=== PATIENT | male | born 1995 | race Two or more races ===

== ENCOUNTER 2021-03-08 11:25 | Emergency (ER) | payer BC ==
--- NOTE | 2021-03-08 11:43 | EDM.PDOC ---
ED HPI GENERAL MEDICAL PROBLEM - General Chief Complaint: Lower Extremity Injury/Pain Stated Complaint: RT KNEE PAIN Time Seen by Provider: 03/08/21 11:35 Source of Information: Reports: Patient, RN Notes Reviewed History Limitations: Reports: No Limitations - History of Present Illness INITIAL COMMENTS - FREE TEXT/NARRATIVE: Patient is a 25-year-old male who presents to the ER for the evaluation of his right knee pain. Notes that he moved the wrong way on Monday night, he felt a pop in his knee. He has had pain in his knee since. He is not taking any sort of meds or anything for the pain. Notes a previous meniscal tear in 2018. He states that there is some pressure to the back of his knee, and it hurts more when he bends it completely. States that it is very difficult to bear weight as well. He notes that he has been walking on his tippy toes for the weekend for the most part. Patient denies any other sick-like symptoms, fever/chills, cough/shortness of breath, nausea/vomiting/diarrhea. He is denying any numbness or tingling into the foot and has no loss of range of motion of his toes. Right Knee Pain Score (Numeric/FACES): 6 - Related Data Allergies Allergy/AdvReac Type Severity Reaction Status Date / Time No Known Allergies Allergy Verified 03/08/21 12:42 Home Meds: Home Meds Hydrocodone/Acetaminophen [Hydrocodone-Acetamin 5-325 mg] 1 each PO Q6H PRN #12 tablet 03/08/21 [Rx] Past Medical History Other Musculoskeletal History: R meniscal tear - Past Surgical History Musculoskeletal Surgical History: Reports: Arthroscopic Procedure (R meniscus repair 2018 in [place]) Review of Systems - Review of Systems Review Of Systems: Comprehensive ROS is negative, except as noted in HPI. ED EXAM, GENERAL - Physical Exam Exam: See Below Exam Limited By: No Limitations General Appearance: Alert, WD/WN, No Apparent Distress Respiratory/Chest: No Respiratory Distress, Lungs Clear, Normal Breath Sounds, No Accessory Muscle Use, Chest Non-Tender Cardiovascular: Normal Peripheral Pulses, Regular Rate, Rhythm, No Edema Peripheral Pulses: 2+: Radial (L), Radial (R) Extremities: Normal Inspection, Normal Capillary Refill, Limited Range of Motion (of R knee d/t pain) Neurological: Alert, Oriented, Normal Cognition, No Motor/Sensory Deficits Psychiatric: Normal Affect, Normal Mood Skin Exam: Warm, Dry, Intact, Normal Color, No Rash Course - Vital Signs Last Recorded V/S: Last Vital Signs Temp 98.1 F 03/08/21 11:34 Pulse 76 03/08/21 11:34 Resp 16 03/08/21 11:34 BP 159/99 H 03/08/21 11:34 Pulse Ox 97 03/08/21 11:34 - Orders/Labs/Meds Orders: Active Orders 24 hr Category Date Time Status DME for Discharge [COMM] Routine Oth 03/08/21 13:27 Ordered Meds: Medications Discontinued Medications Generic Name Dose Route Start Last Admin Trade Name Freq PRN Reason Stop Dose Admin Hydromorphone HCl 0.5 mg 03/08/21 12:45 03/08/21 12:49 Hydromorphone 0.5 Mg/0.5 Ml Syringe IM 03/08/21 12:46 0.5 mg ONETIME ONE Administration - Re-Assessments/Exams Free Text/Narrative Re-Assessment/Exam: 03/08/21 11:55 Patient presents to the ER for his right knee pain, have ordered x-rays for initial evaluation. 03/08/21 13:26 Patient's knee x-ray demonstrates a probable small broad-based osteochondroma of the medial and proximal tibia, consider follow-up knee exam in 6 months in August 2021, to make sure findings do not significantly enlarged. There is a small joint effusion, and mild medial joint space narrowing otherwise no acute fracture is appreciated. Patient will be given a knee immobilizing brace to prevent further injury and/or stabilize the injury. Departure - Departure Time of Disposition: 13:27 Disposition: Home, Self-Care 01 Condition: Good Clinical Impression: Sprain of right knee Qualifiers: Encounter type: initial encounter Involved ligament of knee: unspecified ligament Qualified Code(s): S83.91XA - Sprain of unspecified site of right knee, initial encounter - Discharge Information *PRESCRIPTION DRUG MONITORING PROGRAM REVIEWED*: Yes *COPY OF PRESCRIPTION DRUG MONITORING REPORT IN PATIENT EVONNE: No Prescriptions: Hydrocodone/Acetaminophen [Hydrocodone-Acetamin 5-325 mg] 1 each PO Q6H PRN #12 tablet PRN Reason: Pain Instructions: How to Use a Knee Immobilizer, [id number] Referrals: PCP,None [Primary Care Provider] - Forms: ED Department Discharge, ED Return to Work/School Form Additional Instructions: You have been evaluated in the ED for your right knee pain. Your x-ray demonstrated no acute fracture, but there is a area concerning for a possible osteochondroma off of the medial and proximal tibia, likely this could be just a benign finding however radiology does suggest doing a follow-up knee exam in roughly 6 months which would be August 2021, to make sure that this does not significantly enlarge. Please use ice as tolerated to the affected area. You may elevate the affected area to provide further relief from swelling. You have been provided with a brace, to prevent further injury and/or stabilize the injury you received today. You may take Tylenol 500 mg or ibuprofen 600mg q6 hrs for pain relief. Please do so until you have a tolerable level of pain with activity. Do not exceed 4000mg Tylenol, Do not exceed 3200mg ibuprofen in a 24 hour time period. You were given a prescription for a strong pain medication, hydrocodone/acetaminophen 5/325, please take 1 tab every 6 hours as needed for pain not relieved by Tylenol or ibuprofen alone. Please note this does contain Tylenol in it, so do not take more than 4000 mg in a 24-hour time span. These medications can be addictive, so please take as few as possible to achieve adequate pain control. These meds can also be quite constipating, recommend that you increase your oral fluid intake and take a stool softener like MiraLAX while taking these medications. This medication was electronically sent to the [place] [facility]. Please call Ortho for follow-up and further evaluation Dr. Nelson is our orthopedic surgeon, his office number is [phone]. Please call and set up an appointment as soon as possible for further management. Please return to ED if your symptoms should change or worsen. Sepsis Event Note (ED) - Evaluation Sepsis Screening Result: No Definite Risk - Focused Exam Vital Signs: Vital Signs Temp Pulse Resp BP Pulse Ox 03/08/21 11:34 98.1 F 76 16 159/99 H 97 - My Orders Last 24 Hours: My Active Orders 03/08/21 13:27 DME for Discharge [COMM] Routine - Assessment/Plan Last 24 Hours: My Active Orders 03/08/21 13:27 DME for Discharge [COMM] Routine
[2021-03-08] MEDS ORDERED: HYDROmorphone 0.5 MG/0.5 ML Syringe IM ONE (12:45)
--- NOTE | 2021-03-08 12:57 | CR ---
Left knee: 4 views of the right knee were obtained. Comparison: No prior knee study is available. Small cortical lesion is identified within the medial proximal tibia measuring approximately 3.2 cm. I believe this is most likely benign representing a probable broad-based osteochondroma. Medial joint space is slightly narrowed. Lateral joint space is preserved. Small joint effusion is seen. No acute fracture or dislocation is seen. Impression: 1. Probable small broad-based osteochondroma off the medial and proximal tibia. Consider follow-up knee exam in 6 months (August,) to make sure findings do not significantly enlarge. 2. Mild medial joint space narrowing. 3. Small joint effusion. Diagnostic code #3
== END 2021-03-08 13:52 | disposition home or self-care (01) ==
LOC: JD.ED 11:25
DX: S83.91XA Sprain of unspecified site of right knee, initial encounter (principal); X50.1XXA Overexertion from prolonged static or awkward postures, initial encounter
CPT/HCPCS: 73564; 96372; 99283; J1170